=== PATIENT | female | born 1955 | race Caucasian/White ===

== ENCOUNTER 2022-01-28 04:41 | Emergency (ER) | payer MEDICAID ==
[2022-01-28 05:05] LABS: HEMOGLOBIN 14.1 gm/dl (12.3-15.3); RED BLOOD COUNT 4.6 M/UL (4.00-5.10); WHITE BLOOD COUNT 11.1 K/UL (4.5-11.0)
[2022-01-28 05:24] LABS: BUN/CREATININE RATIO 19 (0-10)
[2022-01-28] MEDS ORDERED: ZOFRAN ODT 4 MG4 MG PO (07:23)
[2022-01-28] MEDS ORDERED: SENOKOT-S TABL1 EACH PO (07:25)
== END 2022-01-28 07:58 | disposition home or self-care (01) ==
LOC: ER1 04:41
PROVIDERS: Family Medicine
DX: D18.03 Hemangioma of intra-abdominal structures (principal)
CPT/HCPCS: 80053; 82550; 82553; 83605; 83690; 84484; 85025; 93005; 96374; 96375; 99284; J2270; J2405; Q9967